=== PATIENT | female | born 1965 | race Hispanic/Latino ===

== ENCOUNTER 2017-07-16 21:51 | Emergency (ER) | payer BC ==
[~2017-07-16] VITALS: Ht 154.9 cm; Wt 88.0 kg
[~2017-07-16 21:51] MED LIST: ATORVASTATIN CA10 MG PO; COUMADIN MT; COUMADIN5 MG PO; CYMBALTA30 MG PO; ELIQUIS; GABAPENTIN300 MG PO; INVOKANA PO; LISINOPRIL5 MG PO; LOSARTAN POTAS100 MG PO; LYRICA25 MG PO; METFORMIN HCL1000 MG; PRAVASTATIN SOD40 MG PO; Z.0.CITALOPRAM HBR20; Z.0.GLYBURIDE5 MG MT; Z.0.TRICOR145 MG; Z.0.ZETIA10 MG PO; Z.1.METFORMIN HCL100 PO
--- OUTSIDE RECORDS SUMMARY | 2017-07-16 21:53 | XMS REPORT | Summary of Care ---
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, 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) Status: Active Diabetic gastroparesis (250.60, E11.43) Status: Active Abdominal pain (789.00, R10.9) Status: Active Chronic GERD (530.81, K21.9) Status: Active Other atopic dermatitis (691.8, L20.89) Status: Active Pain of left calf (729.5, M79.662) Status: Active Right calf pain (729.5, M79.661) Status: Active Other form of dyspnea (786.09, R06.09) Status: Active Pelvic lymphadenopathy (785.6, R59.0) Status: Active Pelvic pain (R10.2) Status: Active Diabetic peripheral neuropathy (250.60, E11.42) Status: Active Bilateral pain of leg and foot (729.5, M79.604) Status: Active Leg pain, diffuse, right (729.5, M79.604) Status: Active Thickened endometrium (793.5, R93.8) Status: Active Abnormal ultrasound of bladder (793.5, R93.41) Status: Active Enlarged uterus (621.2, N85.2) Status: Active DUB (dysfunctional uterine bleeding) (626.8, N93.8) Status: Active Right hip pain (719.45, M25.551) Status: Active Vaginal discharge (623.5, N89.8) Status: Active PMB (postmenopausal bleeding) (627.1, N95.0) Status: Active Screening mammogram, encounter for (V76.12, Z12.31) Status: Active Screening for cervical cancer (V76.2, Z12.4) Status: Active Preop testing (V72.84, Z01.818) Status: Active Nausea (787.02, R11.0) Status: Active Leg swelling (729.81, M79.89) Status: Active Lower extremity edema (782.3, R60.0) Status: Active Hypercoagulable state (289.81, D68.59) Status: Active Vaginal yeast infection (112.1, B37.3) Status: Active Bacterial vaginosis (616.10, N76.0) Status: Active Anxiety and depression (300.00, F41.9) Status: Active DVT, lower extremity, recurrent (453.40, I82.409) Status: Active Mixed hyperlipidemia (272.2, E78.2) Status: Active Delayed surgical wound healing (998.83, T81.89XA) Status: Active Open wound of abdominal wall (879.2, S31.109A) Status: Active Need for influenza vaccination (V04.81, Z23) Status: Active Diabetes mellitus type 2, uncontrolled (250.02, E11.65) Status: Active Flu-like symptoms (780.99, R68.89) Status: Active Acute upper respiratory infection (465.9, J06.9) Status: Active Cough (786.2, R05) Status: Active Medications Name Dates Details DULoxetine HCl - 60 MG Oral Capsule Delayed Release Particles TAKE ONE CAPSULE BY MOUTH EVERY DAY Quantity: 30 YEH D.O., SUJATHA * Start : 02-Apr-2017 Active Losartan Potassium 50 MG Oral Tablet TAKE 1 TABLET BY MOUTH EVERY DAY * Quantity: 90 Refills: 0 YEH D.O., SUJATHA * Start : 25-May-2017 Active MetFORMIN HCl - 1000 MG Oral Tablet TAKE ONE TABLET BY MOUTH TWICE DAILY * Quantity: 60 Refills: 2 YEH D.O.SUJATHA * Start : 09-Apr-2017 Active Tresiba FlexTouch 100 UNIT/ML Subcutaneous Solution Pen-injector inject 20 U SC qHS MDD:50 U * Quantity: 1 Refills: 3 WILLIAM REJI Willett Active 5 x 3 ML Pen OneTouch Delica Lancets 33G use to check BG 2-3xs daily * Quantity: 100 Refills: 3 WILLIAM Angelina.REJI Robledo * Start : 11-Aug-2016 Active Promethazine-Codeine 6.25-10 MG/5ML Oral Syrup TAKE 5 ML EVERY 4 TO 6 HOURS NEEDED FOR COUGH. * Quantity: 240 Refills: 0 DIAZ N.P., JEFF * Start : 16-Mar-2017 Active Invokana 300 MG Oral Tablet TAKE 1 TABLET BY MOUTH ONCE DAILY. NEED OFFICE VISIT * Quantity: 30 Refills: 2 REJI TOHMAS M.D. * Start : 02-Jun-2017 Active Lyrica 200 MG Oral Capsule TAKE 1 CAPSULE Every twelve hours * Quantity: 60 Refills: 3 YEH D.O.SUJATHA Active Eliquis 5 MG Oral Tablet TAKE 1 TABLET TWICE DAILY * Quantity: 60 Refills: 5 YEH D.O., SUJATHA * Start : 29-Jul-2016 Active Atorvastatin Calcium 80 MG Oral Tablet TAKE 1 TABLET BY MOUTH ONCE A DAY * Quantity: 90 Refills: 0 YEH D.O.SUJATHA * Start : 17-Feb-2017 Active Oseltamivir Phosphate 75 MG Oral Capsule TAKE 1 CAPSULE TWICE DAILY WITH MEALS. * Quantity: 10 Refills: 0 DIAZ N.P., JEFF * Start : 16-Mar-2017 Active Azithromycin 250 MG Oral Tablet TAKE 2 TABLETS ON DAY 1 THEN TAKE 1 TABLET A DAY FOR 4 DAYS. * Quantity: 1 Refills: 0 DIAZ N.P., JEFF * Start : 16-Mar-2017 Active 6 Tablet Box BD Pen Needle Mini U/F 31G X 5 MM use to inject insulin once daily * Quantity: 100 Refills: 1 WILLIAM Angelina.REJI Robledo * Start : 11-Aug-2016 Active OneTouch Verio w/Device Kit use to check BG as directed * Quantity: 1 Refills: 0 WILLIAM Willett, REJI * Start : 10-Mar-2017 Active OneTouch Verio In Vitro Strip use to check BG 2-3xs daily * Quantity: 100 Refills: 2 WILLIAM M.Ata., REJI * Start : 11-Aug-2016 Active Januvia 100 MG Oral Tablet TAKE 1 TABLET DAILY * Quantity: 30 Refills: 2 Active Allergies and Adverse Reactions Name Dates Details Gabapentin TABS (Allergy) Status: Active Past Medical History Name Dates Details History of Anxiety (300.00, F41.9) Status: Resolved History of depression (V11.8, Z86.59) Status: Resolved History of diabetes mellitus (V12.29, Z86.39) Status: Resolved History of DVT, lower extremity (453.40, I82.409) Status: Resolved History of hyperlipidemia (V12.29, Z86.39) Status: Resolved History of malignant neoplasm of colon (V10.05, Z85.038) Status: Resolved History of pulmonary embolism (V12.55, Z86.711) Status: Resolved History of Type 2 diabetes mellitus with complication (250.90, E11.8) Status: Resolved Procedures Procedure Dates Details History of colonoscopy Completed History of cholecystectomy Completed History of section Completed History of colectomy subtotal Completed History of appendectomy Completed History of hysterectomy Completed Immunization Name Dates Details Fluzone Quadrivalent Intramuscular Suspension on: 15-Dec-2015 Fluzone Quadrivalent 0.5 ML Intramuscular Suspension Lot #: [id number] on: 15-Jan-2017 Family History Name Dates Details Family history of malignant neoplasm of breast (V16.3, Z80.3) Status: Active Name Dates Details Family history of malignant neoplasm of prostate (V16.42, Z80.42) Status: Active Name Dates Details Family history of type 2 diabetes mellitus (V18.0, Z83.3) Status: Active Name Dates Details Family history of type 2 diabetes mellitus (V18.0, Z83.3) Status: Active Family history of essential hypertension (V17.49, Z82.49) Status: Active Family history of osteoporosis (V17.81, Z82.62) Status: Active Name Dates Details Family history of Aneurysm (442.9, I72.9) Status: Active Family history of type 2 diabetes mellitus (V18.0, Z83.3) Status: Active Family history of hyperlipidemia (V18.19, Z83.49) Status: Active Family history of osteoporosis (V17.81, Z82.62) Status: Active Family history of kidney disease (V18.69, Z84.1) Status: Active Family history of hypertension (V17.49, Z82.49) Status: Active Name Dates Details Family history of malignant neoplasm of uterus (V16.49, Z80.49) Status: Active Name Dates Details Family history of benign neoplasm of colon (V19.8, Z84.89) Status: Active Social History Name Dates Details - Status: Name Dates Details Former smoker Current every day smoker Vital Signs Date Test Result Details 06-May-20178:41 BP Systolic 130 mm[Hg] Status: Comments: Location: RUE; Position: Sitting BP Diastolic 85 mm[Hg] Status: Comments: Location: [facility]; Position: Sitting Height 61 in Status: Weight 196 lb Status: Body Mass Index Calculated 37.03 kg/m2 Status: Body Surface Area Calculated 1.87 m2 Status: Temperature 97.8 f Status: Comments: Method: Oral Heart Rate 89 /min Status: Respiration Rate 18 /min Status: Results Date Description Value Details Results not documented Plan of Care Name Dates Details Planned Observations Planned Goals not documented Planned Encounters Appointment; REJI THOMAS M.D. On: 12-Jun-2017 16:00 Instructions Name Dates Details Instructions not documented Encounters Appointment; SUJATHA CAMILO D.O. Encounter Diagnosis: Problem not documented On: 14-Jul-2016 14:00 Appointment; Victor M Thompson M.D. Encounter Diagnosis: Problem not documented On: 05-Aug-2016 15:00 Appointment; ROCIO OMALLEY M.D. Encounter Diagnosis: Problem not documented On: 08-Aug-2016 16:00 Appointment; SUJATHA CAMILO D.O. Encounter Diagnosis: Problem not documented On: 11-Aug-2016 12:00 Appointment; REJI THOMAS M.D. Encounter Diagnosis: Problem not documented On: 11-Aug-2016 13:00 Appointment; CARMELITA JOHNSON M.D. Encounter Diagnosis: Problem not documented On: 18-Aug-2016 9:45 Appointment; ROCIO OMALLEY M.D. Encounter Diagnosis: Problem not documented On: 05-Sep-2016 16:00 Appointment; CARMELITA JOHNSON M.D. Encounter Diagnosis: Problem not documented On: 08-Sep-2016 8:00 Appointment; ELIAS RICHTER P.A. Encounter Diagnosis: Problem not documented On: 15-Sep-2016 15:00 Appointment; ELIAS RICHTER P.A. Encounter Diagnosis: Problem not documented On: 16-Sep-2016 13:30 Appointment; ELIAS RICHTER P.A. Encounter Diagnosis: Problem not documented On: 18-Sep-2016 8:15 Appointment; MARION TAYLOR M.D. Encounter Diagnosis: Problem not documented On: 29-Sep-2016 11:15 Appointment; ELIAS OCHOA M.D. Encounter Diagnosis: Problem not documented On: 06-Oct-2016 8:00 Appointment; WAI HASTINGS M.D. Encounter Diagnosis: Problem not documented On: 15-Oct-2016 15:20 Appointment; [facility] Encounter Diagnosis: Problem not documented On: 21-Oct-2016 11:30 Appointment; WAI HASTINGS M.D. Encounter Diagnosis: Problem not documented On: 21-Oct-2016 15:00 Appointment; BOGDAN SCOTT M.D. Encounter Diagnosis: Problem not documented On: 22-Oct-2016 8:40 Appointment; ELIAS RICHTER P.A. Encounter Diagnosis: Problem not documented On: 31-Oct-2016 15:30 Appointment; BOGDAN SCOTT M.D. Encounter Diagnosis: Problem not documented On: 06-Nov-2016 13:00 Appointment; BOGDAN SCOTT M.D. Encounter Diagnosis: Problem not documented On: 19-Nov-2016 9:20 Appointment; BOGDAN SCOTT M.D. Encounter Diagnosis: Problem not documented On: 17-Dec-2016 10:00 Appointment; BOGDAN SCOTT M.D. Encounter Diagnosis: Problem not documented On: 24-Dec-2016 8:40 Appointment; WAI HASTINGS M.D. Encounter Diagnosis: Problem not documented On: 26-Dec-2016 14:00 Appointment; BOGDAN SCOTT M.D. Encounter Diagnosis: Problem not documented On: 07-Jan-2017 14:00 Appointment; SUJATHA CAMILO D.O. Encounter Diagnosis: Problem not documented On: 13-Jan-2017 8:15 Appointment; BOGDAN SCOTT M.D. Encounter Diagnosis: Problem not documented On: 14-Jan-2017 13:20 Appointment; BOGDAN SCOTT M.D. Encounter Diagnosis: Problem not documented On: 28-Jan-2017 14:20 Appointment; REJI THOMAS M.D. Encounter Diagnosis: Problem not documented On: 30-Jan-2017 13:30 Appointment; Victor M Thompson M.D. Encounter Diagnosis: Problem not documented On: 10-Feb-2017 15:30 Appointment; BOGDAN SCOTT M.D. Encounter Diagnosis: Problem not documented On: 11-Feb-2017 14:40 Appointment; BOGDAN SCOTT M.D. Encounter Diagnosis: Problem not documented On: 18-Feb-2017 8:40 Appointment; BOGDAN SCOTT M.D. Encounter Diagnosis: Problem not documented On: 04-Mar-2017 8:40 Appointment; REJI THOMAS M.D. Encounter Diagnosis: Problem not documented On: 10-Mar-2017 15:30 Appointment; JEFF DIAZ NP Encounter Diagnosis: Problem not documented On: 16-Mar-2017 11:45 Appointment; BOGDAN SCOTT M.D. Encounter Diagnosis: Problem not documented On: 01-Apr-2017 15:00 Appointment; BOGDAN SCOTT M.D. Encounter Diagnosis: Problem not documented On: 15-Apr-2017 8:40 Appointment; BOGDAN SCOTT M.D. Encounter Diagnosis: Problem not documented On: 22-Apr-2017 8:40 Appointment; BOGDAN SCOTT M.D. Encounter Diagnosis: Problem not documented On: 06-May-2017 8:40
[2017-07-16] MEDS ORDERED: DIPHENHYDRAMINE HCL INJ 50 MG/ML VIAL IV ONE (22:30)
[2017-07-16] MEDS ORDERED: METOCLOPRAMIDE HCL 10 MG/2ML VIAL IV ONE (22:30)
[2017-07-16] MEDS ORDERED: ACETAMIN/BUTALBITAL/CAFFEINE TAB PO ONE (22:30)
[2017-07-16] MEDS ORDERED: SODIUM CHLORIDE 0.9% 1000ML 1,000 ML IV ONE (22:30)
--- NOTE | 2017-07-16 23:11 | Diagnostic Imaging Report ---
EXAMINATION: Head CT without contrast. HISTORY:Headache. COMPARISON:Multiple prior studies, most recent CT brain from 09/11/2015. TECHNIQUE: Multidetector axial images were obtained from the foramen magnum to the vertex without contrast. The images were reconstructed using brain and bone algorithms. Thin section brain images were reformatted into coronal and sagittal planes. Intravenous contrast: None IMAGE QUALITY: Acceptable. FINDINGS: Skull/scalp: No lytic or blastic. lesions. No surgical changes. Parenchyma: No abnormal density. No acute hemorrhage, mass or acute major vascular territorial infarct. Arteries: No density suggestive of thrombosis. Dural sinuses: No abnormal density suggestive of thrombosis. Ventricles: No hydrocephalus or displacement. Extra-axial spaces: No abnormal density. Brain volume: Normal for age. Craniocervical junction: No mass, Chiari malformation, or basilar invagination. Sella: No mass. Paranasal/mastoid sinuses: Imaged portions unremarkable. IMPRESSION: No intracranial abnormality. No change since CT brain from 09/11/2015. Signed by: Dr. Helena Huang M.D. on 07/16/2017 11:08 PM
[2017-07-16 23:20] LABS: BASOPHILS # (AUTO) 0.1 (0.0-0.1); BASOPHILS % 0.8 % (0.0-1.0); EOSINOPHILS # (AUTO) 0.3 (0.0-0.4); EOSINOPHILS % 3.1 % (0.0-6.0); HEMATOCRIT 40.9 % (34.2-44.1); HEMOGLOBIN 13.6 g/dL (12.0-16.0); LYMPHOCYTES # (AUTO) 2.7 (1.0-3.2); LYMPHOCYTES % 26.2 % (18.0-39.1); MEAN CORPUSCULAR HEMOGLOBIN 28.8 pg (28-32); MEAN CORPUSCULAR HGB CONC 33.3 g/dL (31-35); MEAN CORPUSCULAR VOLUME 86.7 fL (81-99); MONOCYTES # (AUTO) 0.8 (0.2-0.8); MONOCYTES % 7.4 % (4.4-11.3); NEUTROPHILS # (AUTO) 6.3 (2.1-6.9); NEUTROPHILS % 62.2 % (38.7-80.0); PLATELET COUNT 346 x10e3/uL (140-360); RED BLOOD COUNT 4.72 x10e6/uL (3.6-5.1); RED CELL DISTRIBUTION WIDTH 13.9 % (11.7-14.4)
[2017-07-16 23:27] LABS: INR 1.06
[2017-07-16 23:28] LABS: PARTIAL THROMBOPLASTIN TIME 30.1 seconds (23.8-35.5)
[2017-07-16 23:37] LABS: ALANINE AMINOTRANSFERASE 14 IU/L (0-55); ALBUMIN 3.8 g/dL (3.5-5.0); ALKALINE PHOSPHATASE 102 IU/L (40-150); ANION GAP 15.8 mmol/L (8-16); BLOOD UREA NITROGEN 17 mg/dL (7-26); BUN/CREATININE RATIO 25 (6-25); CALCIUM 9.9 mg/dL (8.4-10.2); CARBON DIOXIDE 26 mmol/L (22-29); CHLORIDE 102 mmol/L (98-107); CREATININE, SERUM 0.67 mg/dL (0.57-1.11); EST GLOMERULAR FILTRATION RATE > 60 ML/MIN (60-); GLUCOSE 110 mg/dL (74-118); POTASSIUM 3.8 mmol/L (3.5-5.1); SODIUM 140 mmol/L (136-145)
[2017-07-17 00:33] VITALS: BP 117/69
== END 2017-07-17 01:04 | disposition home or self-care (01) ==
LOC: ER 21:51
DX: G43.909 Migraine, unspecified, not intractable, without status migrainosus (principal); E11.9 Type 2 diabetes mellitus without complications; E78.00 Pure hypercholesterolemia, unspecified; Z86.718 Personal history of other venous thrombosis and embolism
CPT/HCPCS: 36415; 70450; 80053; 85025; 85610; 85730; 99284; J1200; J2765; J7030